=== PATIENT | male | born 1980 | race Caucasian/White ===

== ENCOUNTER 2017-12-26 14:41 | Emergency (ER) | payer BC, SELFPAY ==
[2017-12-26 15:14] VITALS: BP 138/90; PULSE 72; RESP 18; TEMP 37.7; O2SAT 98; BMI 33.0
--- NOTE | 2017-12-26 15:26 | HMH.EDUTC ---
[facility] [place] Disposition Clinical Impression: Sciatica Qualifiers: Laterality: right Qualified Code(s): M54.31 - Sciatica, right side Disposition: Home, Self-Care Condition on Discharge: Good Instructions: Sciatica (Alternative Therapy), Sciatica, DI for Sciatica, DI for Back Pain With Sciatica Additional Instructions: Take medication as prescribed Follow up with family doctor Return if needed If pain worsens or you began to have problems urinating or having bowel movement go straight to ER Follow up with family doctor in 2-3days if no improvement in symptoms Prescriptions: Ibuprofen [Ibuprofen 800mg Tab] 800 mg PO Q8HP PRN #20 tab PRN Reason: Moderate Pain Cyclobenzaprine HCl [Flexeril 10mg tablet] 10 mg PO TID #18 tab Referrals: Perfecto Loyola MD [Primary Care Provider] - Forms: Work/School Release Time of Disposition: 15:56 Medical Decision Making - Medical Records Medical records reviewed: Yes: I reviewed the patient's medical records. Vital Signs: 12/26/17 15:14 Temperature 99.8 F H Temperature Source Temporal Artery Scan Pulse Rate [Right] 72 Respiratory Rate 18 Blood Pressure [Right Arm] 138/90 Blood Pressure Mean [Right Arm] 106 Blood Pressure Source [Right Arm] Automatic Cuff Blood Pressure Position [Right Arm] Sitting 02 Sat by Pulse Oximetry 98 Oxygen Delivery Method Room Air Orders (Tests/Meds): ED MEDICATIONS Discontinued Medications Generic Name Dose Route Start Last Admin Trade Name Freq PRN Reason Stop Dose Admin Cyclobenzaprine HCl 10 mg 12/26/17 15:49 12/26/17 16:00 Flexeril 10mg Tablet PO 12/26/17 15:50 10 mg ONCE ONE Administration Ketorolac Tromethamine 60 mg 12/26/17 15:48 12/26/17 16:00 Toradol 60mg/2ml Vial IM 12/26/17 15:49 60 mg ONCE ONE Administration Methylprednisolone Sodium Succinate 125 mg 12/26/17 15:48 12/26/17 16:00 Solu-Medrol 125mg/2ml Vial IM 12/26/17 15:49 125 mg ONCE ONE Administration - Cuco Inquiry Pt receiving controlled substance: No Cuco was queried for this patient: No - Reevaluation(s) Time: 16:14 Reevaluation #1: Patient states that medication is helping with pain [facility] [place] HPI - General Stated complaint: Back Pain Mode of Arrival: Ambulatory Source of Information: Patient Limitations: No Limitations Description of Symptoms (Recalled from Triage Doc. by RN): RIGHT LOW BACK PAIN, RECENT LIFTING HEENT Symptoms (Recalled from RN notes): No Resp Symptoms (Recalled from RN notes): No Skin Symptoms (Recalled from RN notes): No MS Symptoms (Recalled from RN notes): Yes Functional Status (Recalled from RN notes): N - History of Present Illness Provider Complaint: Patient state that he helped his dad several days ago with sherine and was up and down all day long State that he began having pain in his lower back about 2 days ago that has now began to run down his buttock area into his leg States that pain is worse when he moves leg or tries to walk - Related Data Previous Rx's Medication Instructions Recorded Cyclobenzaprine HCl [Flexeril 10mg 10 mg PO TID #18 tab 12/26/17 tablet] Ibuprofen [Ibuprofen 800mg Tab] 800 mg PO Q8HP PRN #20 tab 12/26/17 Allergies Allergy/AdvReac Type Severity Reaction Status Date / Time codeine [CODEINE] Allergy Mild Verified 12/26/17 15:19 Penicillins Allergy Verified 12/26/17 15:19 - Worker's Comp Is this a Worker's Comp case?: No [facility] History I have reviewed the patient's past medical history: Yes - *Social History Smoking Status: Current every day smoker Tobacco Type: cigarettes Alcohol Intake: never - Psychiatric History Expresses thoughts of harming self/others: None Suicide Plan Description: No Plan ROS Obtained: Yes All systems reviewed & no additional complaints - Musculoskeletal Musculoskeletal: Reports other (low back pain radiating down leg) Physical Exam - General General appearance: alert, in no apparent dist
--- NOTE | 2017-12-26 15:32 | ED_ITS ---
[facility] Disposition Clinical Impression: Sciatica Qualifiers: Laterality: right Qualified Code(s): M54.31 - Sciatica, right side Disposition: Home, Self-Care Condition on Discharge: Good Instructions: Sciatica (Alternative Therapy), Sciatica, DI for Sciatica, DI for Back Pain With Sciatica Additional Instructions: Take medication as prescribed Follow up with family doctor Return if needed If pain worsens or you began to have problems urinating or having bowel movement go straight to ER Follow up with family doctor in 2-3days if no improvement in symptoms Prescriptions: Ibuprofen [Ibuprofen 800mg Tab] 800 mg PO Q8HP PRN #20 tab PRN Reason: Moderate Pain Cyclobenzaprine HCl [Flexeril 10mg tablet] 10 mg PO TID #18 tab Referrals: Perfecto Loyola MD [Primary Care Provider] - Forms: Work/School Release Time of Disposition: 15:56 Medical Decision Making - Medical Records Medical records reviewed: Yes: I reviewed the patient's medical records. Vital Signs: 12/26/17 15:14 Temperature 99.8 F H Temperature Source Temporal Artery Scan Pulse Rate [Right] 72 Respiratory Rate 18 Blood Pressure [Right Arm] 138/90 Blood Pressure Mean [Right Arm] 106 Blood Pressure Source [Right Arm] Automatic Cuff Blood Pressure Position [Right Arm] Sitting 02 Sat by Pulse Oximetry 98 Oxygen Delivery Method Room Air Orders (Tests/Meds): ED MEDICATIONS Discontinued Medications Generic Name Dose Route Start Last Admin Trade Name Freq PRN Reason Stop Dose Admin Cyclobenzaprine HCl 10 mg 12/26/17 15:49 12/26/17 16:00 Flexeril 10mg Tablet PO 12/26/17 15:50 10 mg ONCE ONE Administration Ketorolac Tromethamine 60 mg 12/26/17 15:48 12/26/17 16:00 Toradol 60mg/2ml Vial IM 12/26/17 15:49 60 mg ONCE ONE Administration Methylprednisolone Sodium Succinate 125 mg 12/26/17 15:48 12/26/17 16:00 Solu-Medrol 125mg/2ml Vial IM 12/26/17 15:49 125 mg ONCE ONE Administration - Cuco Inquiry Pt receiving controlled substance: No Cuco was queried for this patient: No - Reevaluation(s) Time: 16:14 Reevaluation #1: Patient states that medication is helping with pain [facility] HPI - General Stated complaint: Back Pain Mode of Arrival: Ambulatory Source of Information: Patient Limitations: No Limitations Description of Symptoms (Recalled from Triage Doc. by RN): RIGHT LOW BACK PAIN, RECENT LIFTING HEENT Symptoms (Recalled from RN notes): No Resp Symptoms (Recalled from RN notes): No Skin Symptoms (Recalled from RN notes): No MS Symptoms (Recalled from RN notes): Yes Functional Status (Recalled from RN notes): N - History of Present Illness Provider Complaint: Patient state that he helped his dad several days ago with sherine and was up and down all day long State that he began having pain in his lower back about 2 days ago that has now began to run down his buttock area into his leg States that pain is worse when he moves leg or tries to walk - Related Data Previous Rx's Medication Instructions Recorded Cyclobenzaprine HCl [Flexeril 10mg 10 mg PO TID #18 tab 12/26/17 tablet] Ibuprofen [Ibuprofen 800mg Tab] 800 mg PO Q8HP PRN #20 tab 12/26/17 Allergies Allergy/AdvReac Type Severity Reaction Status Date / Time
[2017-12-26 16:13] VITALS: BP 130/90; PULSE 72; RESP 18; TEMP 37.2
== END 2017-12-26 16:14 | disposition home or self-care (01) ==
PROVIDERS: Emergency Provider Nurse Practitioner; Family Provider Family Medicine; PCP Emergency Medicine
DX: M54.31 Sciatica, right side (principal)
CPT/HCPCS: 96372; 99201

== ENCOUNTER 2017-12-30 10:45 | Emergency (ER) | payer BC, SELFPAY ==
[2017-12-30 10:54] VITALS: BP 154/96; PULSE 89; RESP 16; TEMP 36.6; O2SAT 98; BMI 33.0
--- NOTE | 2017-12-30 11:02 | HMH.EDUTC ---
[facility] [place] Disposition Clinical Impression: Constipation Qualifiers: Constipation type: unspecified constipation type Qualified Code(s): K59.00 - Constipation, unspecified Disposition: Home, Self-Care Condition on Discharge: Good Instructions: Constipation, Increased Dietary Fiber May Improve Constipation Conditions With Pelvic Blas, Constipation (Alternative Therapy), DI for Constipation Additional Instructions: Follow up with family doctor if you continued to have pain in your lower back/right side If you began to have issues urinating go straight to the ER, or if you began to notice blood in your urine Return if needed Make sure to drink plenty of fluids Follow up with family doctor If you began having worsening of pain go straight to ER or family doctor Prescriptions: Magnesium Citrate [Magnesium Citrate 10oz Bottle] 300 ml PO ONCE #1 solution Referrals: Perfecto Loyola MD [Primary Care Provider] - Time of Disposition: 11:43 Medical Decision Making - Medical Records Medical records reviewed: Yes: I reviewed the patient's medical records. Vital Signs: 12/30/17 10:54 Temperature 97.8 F Temperature Source Temporal Artery Scan Pulse Rate [Right] 89 Respiratory Rate 16 Blood Pressure [Right Arm] 154/96 Blood Pressure Mean [Right Arm] 115 Blood Pressure Source [Right Arm] Automatic Cuff Blood Pressure Position [Right Arm] Sitting 02 Sat by Pulse Oximetry 98 Oxygen Delivery Method Room Air - Lab Data Lab Results 12/30/17 10:54: Urine Color Yellow, Urine Appearance Clear, Urine pH 6.0, Ur Specific [place] 1.010, Urine Protein 1+, Urine Glucose (UA) Negative, Urine Ketones Negative, Urine Blood Trace, Urine Nitrate Negative, Urine Bilirubin Negative, Urine Urobilinogen 0.2, Ur Leukocyte Esterase Negative Orders (Tests/Meds): ORDERS Category Date Time Status Abdomen XR flat & upright [XR acute abdomen series] Exams 12/30/17 11:04 Ordered Stat - Radiology Data #1 Image(s): Abdomen Image Reviewed: Yes I reviewed the patient's radiology image w/the ED provider non-specific gas pattern - Cuco Inquiry Pt receiving controlled substance: No Cuco was queried for this patient: No [facility] [place] HPI - General Stated complaint: RIGHT SIDE BACK PAIN Mode of Arrival: Ambulatory Source of Information: Patient Limitations: No Limitations Description of Symptoms (Recalled from Triage Doc. by RN): RIGHT LOW BACK PAIN AND FREQ URINATION HEENT Symptoms (Recalled from RN notes): No Resp Symptoms (Recalled from RN notes): No Skin Symptoms (Recalled from RN notes): No MS Symptoms (Recalled from RN notes): No Functional Status (Recalled from RN notes): N - History of Present Illness Provider Complaint: Patient state that he was seen last week for pulled muscle in his lower back State that he noticed that he has been urinating alot more than usual and feeling like he is constipated not sure if he may have a UTI or not so he wanted to come in and get checked out - Related Data Previous Rx's Medication Instructions Recorded Cyclobenzaprine HCl [Flexeril 10mg 10 mg PO TID #18 tab 12/26/17 tablet] Ibuprofen [Ibuprofen 800mg Tab] 800 mg PO Q8HP PRN #20 tab 12/26/17 Magnesium Citrate [Magnesium 300 ml PO ONCE #1 solution 12/30/17 Citrate 10oz Bottle] Allergies Allergy/AdvReac Type Severity Reaction Status Date / Time codeine [CODEINE] Allergy Mild Verified 12/26/17 15:19 Penicillins Allergy Verified 12/26/17 15:19 - Worker's Comp Is this a Worker's Comp case?: No [facility] History I have reviewed the patient's past medical history: Yes - *Social History Smoking Status: Current every day smoker Tobacco Type: cigarettes Alcohol Intake: never - Psychiatric History Expresses thoughts of harming self/others: None Suicide Plan Description: No Plan ROS Obtained: Yes All systems reviewed & no additional complaints - Gastrointestinal Gastrointestingal: Reports: constipation
--- NOTE | 2017-12-30 11:04 | XR_ITS ---
XR acute abdomen series HISTORY: ITS.REASON: constipation ORDERING PHYSICIAN: Dalia Raza PATIENT AGE: 37 years COMPARISON: None FINDINGS: Frontal view of the chest shows no acute finding. Upright and supine views of the abdomen show nonspecific nonobstructive bowel gas pattern. No intestinal obstruction, free air, urolithiasis, or acute bony anomalies. There is small amount of feces noted in the right colon. No evidence of rectal fecal impaction. IMPRESSION: Essentially negative acute abdominal series
--- NOTE | 2017-12-30 11:05 | ED_ITS ---
[facility] [place] Disposition Clinical Impression: Constipation Qualifiers: Constipation type: unspecified constipation type Qualified Code(s): K59.00 - Constipation, unspecified Disposition: Home, Self-Care Condition on Discharge: Good Instructions: Constipation, Increased Dietary Fiber May Improve Constipation Conditions With Pelvic Blas, Constipation (Alternative Therapy), DI for Constipation Additional Instructions: Follow up with family doctor if you continued to have pain in your lower back/ right side If you began to have issues urinating go straight to the ER, or if you began to notice blood in your urine Return if needed Make sure to drink plenty of fluids Follow up with family doctor If you began having worsening of pain go straight to ER or family doctor Prescriptions: Magnesium Citrate [Magnesium Citrate 10oz Bottle] 300 ml PO ONCE #1 solution Referrals: Perfecto Loyola MD [Primary Care Provider] - Time of Disposition: 11:43 Medical Decision Making - Medical Records Medical records reviewed: Yes: I reviewed the patient's medical records. Vital Signs: 12/30/17 10:54 Temperature 97.8 F Temperature Source Temporal Artery Scan Pulse Rate [Right] 89 Respiratory Rate 16 Blood Pressure [Right Arm] 154/96 Blood Pressure Mean [Right Arm] 115 Blood Pressure Source [Right Arm] Automatic Cuff Blood Pressure Position [Right Arm] Sitting 02 Sat by Pulse Oximetry 98 Oxygen Delivery Method Room Air - Lab Data Lab Results 12/30/17 10:54: Urine Color Yellow, Urine Appearance Clear, Urine pH 6.0, Ur Specific [place] 1.010, Urine Protein 1+, Urine Glucose (UA) Negative, Urine Ketones Negative, Urine Blood Trace, Urine Nitrate Negative, Urine Bilirubin Negative, Urine Urobilinogen 0.2, Ur Leukocyte Esterase Negative Orders (Tests/Meds): ORDERS Category Date Time Status Abdomen XR flat & upright [XR acute abdomen series] Exams 12/30/17 11:04 Ordered Stat - Radiology Data #1 Image(s): Abdomen Image Reviewed: Yes I reviewed the patient's radiology image w/the ED provider non-specific gas pattern - Cuco Inquiry Pt receiving controlled substance: No Cuco was queried for this patient: No [facility] [place] HPI - General Stated complaint: RIGHT SIDE BACK PAIN Mode of Arrival: Ambulatory Source of Information: Patient Limitations: No Limitations Description of Symptoms (Recalled from Triage Doc. by RN): RIGHT LOW BACK PAIN AND FREQ URINATION HEENT Symptoms (Recalled from RN notes): No Resp Symptoms (Recalled from RN notes): No Skin Symptoms (Recalled from RN notes): No MS Symptoms (Recalled from RN notes): No Functional Status (Recalled from RN notes): N - History of Present Illness Provider Complaint: Patient state that he was seen last week for pulled muscle in his lower back State that he noticed that he has been urinating alot more than usual and feeling like he is constipated not sure if he may have a UTI or not so he wanted to come in and get checked out - Related Data Previous Rx's Medication Instructions Recorded Cyclobenzaprine HCl [Flexeril 10mg 10 mg PO TID #18 tab 12/26/17 tablet] Ibuprofen [Ibuprofen 800mg Tab] 800 mg PO Q8HP PRN #20 tab 12/26/17 Magnesium Citrate [Magnesium 300 ml PO ONCE #1 solution 12/30/17 Citrate 10oz Bottle] Allergies Saurabh
[2017-12-30 11:07] LABS: Apearance,Urine Clear (Clear); Color,Urine Yellow (Yellow); Glucose,Urine (UA) Negative (Negative); Ketones,Urine Negative (Negative); Protein,Urine 1+ (Negative)
[2017-12-30 11:08] LABS: Bilirubin,Urine Negative (Negative); Blood, Urine Trace (Negative); UTC Leukocyte Esterase,Urine Negative (Negative); UTC Nitrate,Urine Negative (Negative); Urobilinogen,Urine 0.2 EU/dl (0.2)
[2017-12-30 11:42] VITALS: BP 154/96; PULSE 88; RESP 18; TEMP 36.6
== END 2017-12-30 11:43 | disposition home or self-care (01) ==
PROVIDERS: Emergency Provider Nurse Practitioner; Family Provider Family Medicine; PCP Emergency Medicine
DX: K59.00 Constipation, unspecified (principal); Z88.0 Allergy status to penicillin; Z88.6 Allergy status to analgesic agent; F17.210 Nicotine dependence, cigarettes, uncomplicated
CPT/HCPCS: 74021; 81003; 99202

== ENCOUNTER 2023-06-16 13:10 | Emergency (ER) | payer OTHER, SELFPAY ==
--- NOTE | 2023-06-16 13:22 | XR_ITS ---
FINAL REPORT CLINICAL HISTORY: TWISTED RT ANKLE, PAIN FINDINGS: RIGHT ANKLE 3 views of the right ankle were obtained. There is no acute fracture or dislocation. The mortise is intact. Visualized joint spaces are normally aligned. There is lateral soft tissue swelling. IMPRESSION: Lateral soft tissue swelling without definite fracture. Reviewed, Interpreted and Dictated by Harpal Reyes MD Transcribed by America Hernandez Authenticated and [facility]
[2023-06-16 13:30] VITALS: BP 128/80; PULSE 86; RESP 18; TEMP 36.7; O2SAT 96; BMI 42.7
[2023-06-16 14:01] LABS: UTC Strep Screen (Rapid) Negative (Negative)
--- NOTE | 2023-06-16 14:12 | EXP.UTC ---
Discharge Plan Disposition Patient Disposition: Home, Self-Care Condition: Good Prescriptions Prescriptions: New sulfamethoxazole-trimethoprim [Bactrim DS] 800-160 mg tablet 1 tab PO Q12H 10 Days Qty: 20 0RF Referrals Follow up/Referrals: Provider,Referral, [Primary Care Provider] - See instructions Activity Restrictions/Add. Instructions Additional Instructions/Restrictions: If leg gets worse instead of better, follow up with PCP or return to the [facility]. Will call you with the x-ray results. Clinical Impressions Clinical Impression: Cellulitis and abscess of leg Upper respiratory tract infection Qualifiers: URI type: unspecified viral URI Qualified Code(s): J06.9 - Acute upper respiratory infection, unspecified Instructions Patient Instructions: DI for Cellulitis -- Adult, DI for Viral Upper Respiratory Infection -- Adult Discharge ED Provider: Christa Zavala [facility] [place] H[place] General Stated complaint: AO [id number] RIGHT ANKLE INJURY HOME ACCIDENT Mode of Arrival: Ambulatory Source of Information: Patient Limitations: No Limitations Time Seen by Provider: 06/16/23 13:53 Description of Symptoms (Recalled from Triage Doc. by RN): PATIENT STATES HE TRIPPED APPROX 2-2.5 WEEKS AGO AND A SAW WENT INTO OUTER RIGHT ANKLE AND HE IS CONCERNED IT MAY BE INFECTED. REDNESS AND SCAB NOTED TO AREA. HE ALSO C/O COUGH AND RECENTLY EXPOSED TO TONSILITIS. HEENT Symptoms (Recalled from RN notes): No Resp Symptoms (Recalled from RN notes): Yes Skin Symptoms (Recalled from RN notes): No MS Symptoms (Recalled from RN notes): Yes Functional Status (Recalled from RN notes): WNL History of Present Illness Provider Complaint: Pt reports that about 2-21/2 weeks ago he hit his ankle with a saw blade. He relates that he got a lot of pus out of the sore a few days ago. He states that he has been putting neosporin and covering with a Band-Aid. He reports that his daughter has had tonsillitis and he now has a runny nose and sore throat. He requests an x-ray to make sure that he does not have a fracture where the saw blade hit. Related Data Previous Rx's Medication Instructions Recorded sulfamethoxazole 800 1 tab PO Q12H 10 days #20 tabs 06/16/23 mg-trimethoprim 160 mg tablet (Bactrim DS) Allergies Allergy/AdvReac Type Severity Reaction Status Date / Time codeine [CODEINE] Allergy Mild Verified 01/20/19 09:37 Penicillins Allergy Verified 01/20/19 09:37 Worker's Comp Is this a Worker's Comp case?: No [facility] Disclaimer: The information contained in this section may have been updated after the patient was seen, as this information can be updated by other users. Social History Smoking Status: Current every day smoker tobacco type: cigarettes packs per day: 1 alcohol intake: never current occupational status: other Travel in the last 8 weeks: None housing: house ROS Obtained: Yes All systems reviewed & no additional complaints except as documented Constitutional Constitutional: Reports system reviewed and no additional complaints, except as documented Eyes Eyes: Reports system reviewed and no additional complaints, except as documented ENT Ears, Nose, Mouth, and Throat: Reports system reviewed and no additional complaints, except as documented, Reports nasal discharge, Reports odynophagia and Reports post nasal drip Comments: Daughter has pharyngitis at home Cardiovascular Cardiovascular: Reports system reviewed and no additional complaints, except as documented Respiratory Respiratory: Reports system reviewed and no additional complaints, except as documented Gastrointestinal Gastrointestingal: Reports odynophagia Genitourinary Male Genitourinary: Reports system reviewed and no additional complaints, except as documented Musculoskeletal Musculoskeletal: Reports system reviewed and no additional complaints, except as documented and Reports myalgias Comments: right leg pain Integumentary/Breasts Skin/Caro
[2023-06-16 14:26] VITALS: BP 128/80; PULSE 86; RESP 18; TEMP 36.7; O2SAT 96
== END 2023-06-16 14:35 | disposition home or self-care (01) ==
PROVIDERS: Emergency Provider Nurse Practitioner Family
DX: L02.415 Cutaneous abscess of right lower limb (principal); L03.115 Cellulitis of right lower limb; J06.9 Acute upper respiratory infection, unspecified; F17.210 Nicotine dependence, cigarettes, uncomplicated
CPT/HCPCS: 73610; 87880; 99212; 99214; G0463